=== PATIENT | male | born 1990 | race Caucasian/White ===

== ENCOUNTER 2017-04-05 18:25 | Emergency (ER) | payer SELFPAY ==
--- NOTE | 2017-04-05 18:55 | PDOC ---
Rapid Medical Evaluation Time Seen by Provider: 04/05/17 18:53 Medical Evaluation: 04/05/17 18:53 The patient presents with a chief complaint of: [Fever, bodyaches for one week. No abdominal pain, no N/V/D ] I have performed a brief in-person evaluation: Temp 102.8, Went away on then it started again on wednesday. [] I have ordered the following: [Rapid influenza] The patient will proceed to the ED for further evaluation. Discharge Disposition - Diagnosis Fever - Referrals - Patient Instructions - Post Discharge Activity
[2017-04-05 18:56] VITALS: BP 141/71; BMI 37.8
[2017-04-05] MEDS ORDERED: ACETAMINOPHEN 325 MG TABLET (FP) PO ONE (18:56)
--- NOTE | 2017-04-05 19:30 | PDOC ---
History of Present Illness - General Chief Complaint: Cold Symptoms Stated Complaint: FEVER Time Seen by Provider: 04/05/17 18:53 History Source: Patient - History of Present Illness Timing/Duration: reports: week Associated Symptoms: reports: fever/chills, muscle aches. denies: cough, earache, nasal congestion, shortness of breath, sore throat Past History - Past Medical History Allergies/Adverse Reactions: Allergies Allergy/AdvReac Type Severity Reaction Status Date / Time No Known Allergies Allergy Verified 04/05/17 18:53 Home Medications: Ambulatory Orders NK [No Known Home Medication] 04/05/17 COPD: No - Suicide/Smoking/Psychosocial Hx Smoking History: Never smoked Information on smoking cessation initiated: No Hx Alcohol Use: No Drug/Substance Use Hx: No Substance Use Type: None Review of Systems - Review of Systems Constitutional: Yes: Chills, Fever, Malaise Respiratory: No: Cough, Shortness of Breath ABD/GI: No: Diarrhea, Nausea, Vomiting *Physical Exam - Vital Signs Last Vital Signs Temp Pulse Resp BP Pulse Ox 102.8 F H 121 H 18 141/71 100 04/05/17 18:54 04/05/17 18:54 04/05/17 18:54 04/05/17 18:54 04/05/17 18:54 - Physical Exam General Appearance: Yes: Appropriately Dressed. No: Apparent Distress HEENT: positive: Normal ENT Inspection, Normal Voice. negative: Scleral Icterus (R), Scleral Icterus (L) Neck: positive: Supple Respiratory/Chest: positive: Lungs Clear, Normal Breath Sounds. negative: Respiratory Distress Cardiovascular: positive: S1, S2, Tachycardia Gastrointestinal/Abdominal: negative: Tender, Soft Integumentary: positive: Dry, Warm Neurologic: positive: Fully Oriented, Alert, Normal Mood/Affect ED Treatment Course - Medications Given in the ED: ED Medications Discontinued Medications Generic Name Dose Route Start Last Admin Trade Name Freq PRN Reason Stop Dose Admin Acetaminophen 650 mg 04/05/17 18:56 04/05/17 18:57 Tylenol - PO 04/05/17 18:57 650 mg ONCE ONE Administration Medical Decision Making - Medical Decision Making 04/05/17 19:29 27-year-old male, no significant history here with fever and chills with body aches 1 week. Not taking anything for symptoms. No headache, ear pain, sore throat, cough, shortness of breath, nausea, vomiting, diarrhea or rash. No sick contacts or recent travel. Patient febrile and tachycardic, but nontoxic appearing with unremarkable exam otherwise. Antipyretic given at triage. Flu swab pending 04/05/17 20:31 Flu test negative. Vitals improved with meds. DC with supportive treatment 04/05/17 20:31 *DC/Admit/Observation/Transfer Diagnosis at time of Disposition: Viral syndrome - Discharge Dispostion Disposition: HOME Condition at time of disposition: Improved - Referrals - Patient Instructions Printed Discharge Instructions: DI for Viral Syndrome Additional Instructions: Your flu test was negative. You do have a nonspecific virus. Rest and drink plenty of fluids and take Motrin and Tylenol for pain and/or fever - Post Discharge Activity
[2017-04-05 20:22] VITALS: PULSE 90; TEMP 99.6
== END 2017-04-05 20:37 | disposition home or self-care (01) ==
LOC: JERFT 18:25
DX: B34.9 Viral infection, unspecified (principal)
CPT/HCPCS: 87804; 99281-25